=== PATIENT | female | born 1955 | race Caucasian/White ===

== ENCOUNTER → 2017-02-02 | Outpatient (CLI) | payer OTHER ==
[2013-12-16 09:56] VITALS: BP 110/60
[~2017-02-02] MED LIST: FLAX100017 PO; LACT1CAP25 PO; TURM1CAP PO
--- NOTE | 2017-02-02 14:30 | EKG ---
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
[2017-02-02 14:37] LABS: BASO # 0.1 x10^3/uL (0.0-0.2); BASO % 1 % (0-3); EOS % 5 % (0-3); HEMATOCRIT 37.3 % (36.0-47.0); HEMOGLOBIN 12.6 g/dL (12.0-15.5); LYMPH # 2.1 x10^3/uL (1.0-4.8); LYMPH % 29 % (24-48); MEAN CORPUSCULAR HEMOGLOBIN 29 pg (25-35); MEAN CORPUSCULAR HGB CONC 34 g/dL (31-37); MEAN CORPUSCULAR VOLUME 87 fL (79-100); MONO % 7 % (0-9); NEUT % 59 % (31-73); PLATELET COUNT 261 x10^3/uL (140-400); RED BLOOD COUNT 4.29 x10^6/uL (3.50-5.40); RED CELL DISTRIBUTION WIDTH 14.6 % (11.5-14.5); WHITE BLOOD COUNT 7.3 x10^3/uL (4.0-11.0)
--- NOTE | 2017-02-02 15:15 | RAD ---
Chest, 2 views, 02/02/2017: History: Preop evaluation for hysterectomy The heart size and pulmonary vascularity are normal. The lungs are clear. There is no evidence of pleural fluid. IMPRESSION: No acute cardiopulmonary abnormality is detected.
[2017-02-02 15:21] LABS: CALCIUM 9.3 mg/dL (8.5-10.1); CREATININE 0.8 mg/dL (0.6-1.0); GFR 72.7; POTASSIUM 3.8 mmol/L (3.5-5.1); TOTAL BILIRUBIN 1.2 mg/dL (0.2-1.0); TOTAL PROTEIN 8.1 g/dL (6.4-8.2)
[2017-02-02 15:23] LABS: BILIRUBIN,URINE NEGATIVE (NEG); GLUCOSE,URINE NEGATIVE (NEG); NITRITE,URINE NEGATIVE (NEG); PH,URINE 6.5; PROTEIN,URINE NEGATIVE (NEG-TRACE); UROBILINOGEN,URINE 0.2 mg/dL (0.2 mg/dL)
[2017-02-02 15:48] LABS: BACTERIA,URINE FEW /HPF (0-FEW); RBC,URINE OCC /HPF (0-2); SQUAMOUS EPITHELIAL CELL,UR MOD /LPF
== END | disposition home or self-care (01) ==
LOC: SURGPAT 13:48
PROVIDERS: ATTEND Obstetrics & Gynecology
DX: Z01.818 Encounter for other preprocedural examination (principal); R00.1 Bradycardia, unspecified
CPT/HCPCS: 36415; 71020; 80053; 81001; 85025; 93005

== ENCOUNTER 2017-02-11 06:00 | Observation (INO) | payer OTHER ==
[2017-02-11] VITALS (9 sets, daily range): BP systolic 89–127; BP diastolic 50–69
[~2017-02-11] VITALS: Ht 162.6 cm; Wt 87.5 kg
[2017-02-11] MEDS ORDERED: IV RINGERS,LACTATED 1000ML 1,000 ML IV SCH ×2 (06:14→09:45)
[2017-02-11] MEDS ORDERED: MIDAZOLAM HCL/PF 2 MG/2 ML VIAL. IV PRN (06:15)
[2017-02-11] MEDS ORDERED: LIDOCAINE 1% PF 2 ML VIAL. ID PRN ×2 (06:15→09:45)
[2017-02-11] MEDS ORDERED: fentaNYL PF VIAL 100 MCG/2 ML VIAL IV PRN ×3 (06:15→09:45)
[2017-02-11] MEDS ORDERED: SCOPOLAMINE 1.5MG PATCH. TD ONE ×2 (06:38→06:45)
[2017-02-11] MEDS ORDERED: BUPIVACAINE-EPI 0.25%-1:200000 MPF 30 ML VIAL. ONE (06:58)
[2017-02-11] MEDS ORDERED: ESTROGENS, CONJ VAGINAL CREAM 30GM TUBE. ONE (06:59)
[2017-02-11] MEDS ORDERED: MIDAZOLAM HCL/PF 2 MG/2 ML VIAL. ONE (07:12)
[2017-02-11] MEDS ORDERED: PROPOFOL 20 ML IV ONE (07:12)
[2017-02-11] MEDS ORDERED: DEXAMETHASONE SOD PHOS 20 MG/5 ML VIAL. ONE (07:12)
[2017-02-11] MEDS ORDERED: ONDANSETRON PF 4 MG/2 ML VIAL. ONE (07:12)
[2017-02-11] MEDS ORDERED: LIDOCAINE 2% PF Vial for OR 5 ML VIAL. ONE (07:12)
[2017-02-11] MEDS ORDERED: ROCURONIUM 100 MG/10 ML VIAL. ONE (07:13)
[2017-02-11] MEDS ORDERED: fentaNYL PF VIAL 100 MCG/2 ML VIAL ONE ×3 (07:13→09:40)
[2017-02-11] MEDS ORDERED: GLYCOPYRROLATE 1 MG/5 ML VIAL. ONE (07:38)
[2017-02-11] MEDS ORDERED: ePHEDrine PF IN SALINE 50 MG/5 ML DISP.SYRIN IV ONE (07:41)
[2017-02-11] MEDS ORDERED: FAMOTIDINE 20 MG/2 ML VIAL ONE (07:48)
[2017-02-11] MEDS ORDERED: SEVOFLURANE > 120 MINUTES. IH ONE (08:25)
[2017-02-11] MEDS ORDERED: NEOSTIGMINE 10 MG/10 ML VIAL. ONE (08:25)
[2017-02-11] MEDS ORDERED: KETOROLAC 60 MG/2 ML INJ FOR OR. ONE (09:32)
[2017-02-11] MEDS ORDERED: HYDROmorphone 2 MG/ML VIAL IV PRN ×2 (09:45→10:00)
[2017-02-11] MEDS ORDERED: ONDANSETRON PF 4 MG/2 ML VIAL. IV PRN ×2 (09:45→10:00)
[2017-02-11] MEDS ORDERED: MORPHINE SULFATE 4 MG/ML DISP.SYRIN. IV PRN ×2 (09:45→10:00)
[2017-02-11] MEDS ORDERED: PROCHLORPERAZINE 10 MG/2 ML VIAL. IV PRN (09:45)
--- NOTE | 2017-02-11 09:57 | PDOC ---
BRIEF OPERATIVE NOTE Date: Feb 11, 2017 Pre-Op Diagnosis pelvic organ prolapse with cystocele, rectocele and uterine prolapse Post-Op Diagnosis same Procedure Performed LAVH/BSO/anterior & posterior repairs Surgeon Dr. Alexa Leonard Magnetic Tape Typewriter Operator Dr. Mercy Ruth Anesthesiologist Dr. Johnson Anesthesia Type: General Blood Loss 150cc IV Fluid 1300cc Urine Output 400cc clear via [place] Specimens Obtained cervix, uterus, bilateral tubes and ovaries, anterior and posterior vaginal mucosa Findings 2 uterine prolapse, 3 cystocele, 2-3 rectocele, small atrophic uterus bilateral tubes and ovaries; mild omental adhesions at umb and RUQ from her prior surgeries present upon entry into abdominal cavity Complications none OPerative Note [id number] ALEXA LEONARD MD Feb 11, 2017 09:57
[2017-02-11] MEDS ORDERED: 0.9 % SODIUM CHLORIDE 10 ML DISP.SYRIN. IV PRN (10:00)
[2017-02-11] MEDS ORDERED: CALCIUM CARBONATE 500 MG TAB.CHEW PO PRN (10:00)
[2017-02-11] MEDS ORDERED: diphenhydrAMINE 50 MG/ML VIAL IV PRN (10:00)
[2017-02-11] MEDS ORDERED: ZOLPIDEM 5 MG TABLET. PO PRN (10:00)
[2017-02-11] MEDS ORDERED: diphenhydrAMINE HCL 25 MG CAPSULE PO PRN (10:00)
[2017-02-11] MEDS ORDERED: HYDROmorphone 2 MG TABLET PO PRN (10:00)
[2017-02-11] MEDS ORDERED: LACTULOSE 20 GM/30 ML SOLUTION. PO PRN (10:00)
[2017-02-11] MEDS ORDERED: MAGNESIUM HYDROXIDE 2,400 MG/30 ML ORAL.SUSP. PO PRN (10:00)
[2017-02-11] MEDS ORDERED: SIMETHICONE 80 MG TAB.CHEW PO PRN (10:00)
[2017-02-11] MEDS ORDERED: MAG HYDROX/ALUMINUM HYD/SIMETH 30 ML ORAL.SUSP PO PRN (10:00)
[2017-02-11] MEDS ORDERED: NALOXONE 0.4 MG/ML VIAL. IV PRN (10:00)
[2017-02-11] MEDS: fentaNYL PF VIAL 100 MCG/2 ML VIAL IV PRN ×2 (10:03→10:47)
--- NOTE | 2017-02-11 11:48 | OP ---
DATE OF SURGERY: 02/11/2017 DATE OF SERVICE: 02/11/2017 PREOPERATIVE DIAGNOSES: Symptomatic pelvic organ prolapsed with a second degree cervical uterine prolapse, third degree cystocele and second to third degree rectocele. POSTOPERATIVE DIAGNOSES: Symptomatic pelvic organ prolapsed with a second degree cervical uterine prolapse, third degree cystocele and second to third degree rectocele. SURGEON: Yovana Leonard M.D. OUTREACH SPECIALIST: Mercy Ruth MD ANESTHESIA: General. PROCEDURE PERFORMED: Laparoscopic-assisted vaginal hysterectomy, bilateral salpingo-oophorectomy, anterior and posterior colporrhaphy with perineoplasty. ANESTHESIA: General. ESTIMATED BLOOD LOSS: 150 mL. IV FLUIDS: 1300 mL of crystalloid. URINE OUTPUT: 400 mL, clear via Gardner. ANESTHESIOLOGIST: Dr. Johnson SPECIMENS: Cervix, uterus, bilateral tubes and ovaries with anterior and posterior vaginal mucosa as well. FINDINGS: Second degree uterine prolapse, third degree cystocele, second to third degree rectocele, small atrophic bilateral tubes and ovaries, mild omental adhesions at the umbilicus in the right upper quadrant from her previous abdominal surgeries present upon entry to the abdominal cavity. COMPLICATIONS: None. DESCRIPTION OF PROCEDURE: This patient was taken to the operating room where general anesthesia was placed. The patient was placed in dorsal lithotomy position in [facility]. The patient's abdomen and vagina were prepped and draped in the normal sterile fashion and a Gardner catheter was inserted under sterile technique. At this point, after time-out was performed, a bivalve speculum was placed in the patient's vagina. A single tooth tenaculum was used to grasp the anterior lip of the cervix. The 10 mL of 0.25% Marcaine with epinephrine was used to circumferentially inject around the cervix for both hemodissection and hemostatic purposes later. At this point, the Valtchev uterine manipulator was placed through the endocervical os, locked on the single tooth tenaculum and the bivalve speculum was then removed. Top gloves were discarded and changed. Attention was then turned to the abdomen where a small supraumbilical skin incision was made with the scalpel over the existing scar. A curved Kimberly was used to dissect through the subcuticular layer. The Visiport was used to directly enter the abdominal cavity and opening patient pressure was 2-3 mmHg. The couple of mL of air was placed in the balloon port of the trocar and patient was placed in Trendelenburg position. The right and left lower quadrant ports were placed easily after transilluminating the anterior abdominal wall, picking an area free of any vessels making a small incision and putting the 5 mm atraumatic trocars and again a few mL of air were used to inflate the balloon from both of these. The scope was moved to one of the lateral ports to look at the umbilical port, as we could see omental adhesions, it was not in omental adhesions, it was right next to it and then there were some in the right upper quadrant that were existing, unsure from her either previous lap guillermo, lap band or both, but these were not taken down and we could see around them and the pelvis was completely clear of any adhesions, it was all umbilical and right upper quadrant. At this point, the left round ligament was cauterized and cut with the LigaSure Advance creating a window in the mesosalpinx, making the bladder flap sharply with the monopolar tip elevating the left tube and ovary, finding the ureter coursing very low in the pelvis, staying high on the ovary crossing the infundibulopelvic ligament, cauterizing and cutting it in a stepwise fashion going down and obtaining the uterine vessels on this side as well. This was done exactly the same on the right side first starting with the round ligament, cauterizing and cutting it, going down and further meeting that bladder flap anteriorly elevating the right tube and ovary, again finding the ureter coursing low, staying high on the ovary crossing the IP ligament, cauterizing and cutting it with the LigaSure Advanced and obtaining the uterine vessels on this side as well. Then, crossing contralaterally hugging the cervix and staying vertical going through the cardinal and broad ligaments to the uterosacral cauterizing and cutting each step 2 or three bites with the LigaSure Advance making sure hemostasis was achieved. Once this was done, all instruments were removed from the abdomen and attention was turned vaginally. The Valtchev and single tooth were removed. Thyroid Valery clamps were placed on the anterior and posterior lips of the cervix respectively and a weighted speculum was placed in the patient's vagina. A scalpel was used to make a circumferential incision. This was made very low like 1 cm above the cervical os on the top, as there was good cystocele and the anterior cul-de-sac was sharply entered. The retractor curved Roberto was placed in the anterior cul-de-sac. The left side was completely free; the right side, one bite remained. After getting in posteriorly sharply entering that with the Jeffries scissors, a #0 Vicryl stitch was used to secure the posterior peritoneum to the vaginal cuff. The short weighted speculum was removed and replaced with the long weighted Honorio speculum. The entire left side was completely free and the tube and ovary were actually hanging out the uterus and is inverted on this side. It was a small atrophic uterus. There was one remaining pedicle on the right side. The right angle clamp was used to delineate this and the vaginal LigaSure Max was used to cauterize the remaining pedicle. Cervix, uterus, bilateral tubes and ovaries were delivered and total and passed off for permanent pathology. There was some slight bleeding from the left side. A Burlisher was placed over this and vaginal LigaSure Max was placed behind and securing bleeding on this side, cauterizing it. Once this was done, a sponge stick was used to examine the remaining pedicles, they were dry. The long weighted Honorio speculum was removed and replaced with the short weighted. There was some slight bleeding at the cuff, interrupted suture was placed here as well with #0 Vicryl. Once this was done, the anterior bladder peritoneum was grasped with a long Allis. Again, the pedicles remained dry, 2-0 Vicryl was taken through this though left uterosacral, posterior peritoneum and right uterosacral thus closing the peritoneum in a pursestring like fashion. Once this was done, Wei's were placed 2 and 10 o'clock on the anterior cuff and 40 mL of a dilute solution of 1 part local to a 4 parts injectable saline was used. I believe it was 50 and 200 of the injectable saline was used, 40 mL was used to the anterior defect. Metzenbaum scissors were used to open up this defect and Allis clamps were placed along the way. Using the Metzenbaum scissors sharply, and then the Ray-Rosanne 4 x 4 was used to gently push up the anterior bladder peritoneum. After the Metzenbaum scissors were used to take the defect off the edges and then the Ray-tech was used to gently push it up. A nice avascular ____ very good on this left and right side. The anterior defect was reduced, I believe 4 or 5 interrupted 2-0 Vicryl sutures were used. They were placed and then tagged with curved Kellys reducing and then once they were not tied yet, they were just tagged and then taking him back in order pushing up the defect with the blunt end of pickups and then tying them from the superior to inferior interrupted sutures reducing the defect well, Metzenbaum scissors were used to gently take off any excess vaginal mucosa on the anterior wall and then a 2-0 Vicryl was used to close the entire defect from anterior all the way down to the posterior cuff in a running locked fashion with a full length 2-0 Vicryl. Once this was done, the Kochers were then placed at 4 and 7 o'clock at the introitus for the posterior defect, 60 mL of that dilute solution was used to inject the perineal body and the posterior defect. A scalpel was used to take a wedge shaped specimen out of the vaginal opening, it was taken off and then Metzenbaum scissors were again used to open up the posterior defect placing Allis along the way and taking it all the way up to that posterior cuff tag or posterior cuff stitch. Again sharply and bluntly using the Metzenbaum scissors to release it on the edges and then the Ray-Rosanne 4 x 4 used to gently push it off in the posterior vaginal mucosa reducing the rectocele. 5 or 6 interrupted 2-0 Vicryl sutures were placed here with excellent results. First placing them and tagging them and then going back and reducing it, pushing it down and tying it and then trimming off the excess vaginal mucosa again and then a running locked stitch full length 2-0 Vicryl was used to close the posterior defect and then at the introitus, that reapproximated the hymenal ring and then going under it with closing the perineal body with sutures and then ____ it up the perineal body like an episiotomy and then taking it back and entering in the vagina. A small amount of packing with Premarin cream was placed in the patient's vagina and this concluded the vaginal part. All gloves were discarded and changed. Attention was turned back above for a second look from above. Everything was hemostatic. Copious irrigation revealed hemostasis, right and left pericolic gutters were clear. The cuff was dry, so Tisseel was placed over the pedicles and the right and left lower quadrant. The balloons were deflated, they were released. Sooner when the balloon was deflated and all the gas was released and then it was removed as well. All sponge, lap and needle counts were correct x 2 by OR personnel and the patient was awakened from the anesthesia and taken to recovery room in stable condition. YOVANA LEONARD MD DR: STEPHANY/radha JOB#: [id number] / [id number]
[2017-02-11] MEDS: KETOROLAC 30 MG/ML INJ. IV PRN ×2 (16:32→21:55)
[2017-02-11] MEDS ORDERED: DOCUSATE SODIUM 100 MG CAPSULE. PO ONE (21:30)
[2017-02-12 01:44] VITALS: BP 88/53
[2017-02-12 05:04] LABS: CALCIUM 8.3 mg/dL (8.5-10.1); CREATININE 0.8 mg/dL (0.6-1.0); GFR 72.7; POTASSIUM 5.3 mmol/L (3.5-5.1)
[2017-02-12] MEDS: KETOROLAC 30 MG/ML INJ. IV PRN (05:12)
[2017-02-12 05:41] VITALS: BP 83/42
[2017-02-12 05:42] VITALS: BP 100/55
[2017-02-12 05:43] VITALS: BP 92/57
--- NOTE | 2017-02-12 08:55 | PDOC ---
SURGICAL PROGRESS NOTE Subjective Doing well without complaints. No pain at all. Ambulating well around the floor scant vaginal spotting only. No n/v, tolerating regular diet without problems Vital Signs Vital Signs Date Time Temp Pulse Resp B/P (MAP) Pulse Ox O2 Delivery O2 Flow Rate FiO2 02/12/17 05:43 55 92/57 (69) 02/12/17 05:42 97.9 18 95 Room Air 97.9 02/11/17 17:43 2.0 PATIENT HAS A SOLIS: No General: Alert, Oriented X3, Cooperative, No acute distress HEENT: Atraumatic Heart: Regular rate Abdomen: Normal bowel sounds, Soft, No tenderness, Other (all port sites c/d/i) Extremities: No clubbing, No cyanosis, No edema Neuro: Normal gait, Normal speech Psych/Mental Status: Mental status NL, Mood NL Labs Laboratory Tests Test 02/12/17 04:34 Hematocrit 29.7 % (36.0-47.0) Sodium Level 139 mmol/L (136-145) Potassium Level 5.3 mmol/L (3.5-5.1) Chloride Level 106 mmol/L (98-107) Carbon Dioxide Level 25 mmol/L (21-32) Anion Gap 8 (6-14) Blood Urea Nitrogen 12 mg/dL (7-20) Creatinine 0.8 mg/dL (0.6-1.0) Estimated GFR (Cockcroft-Gault) 72.7 Glucose Level 112 mg/dL (70-99) Calcium Level 8.3 mg/dL (8.5-10.1) Laboratory Tests Test 02/12/17 04:34 Hematocrit 29.7 % (36.0-47.0) Sodium Level 139 mmol/L (136-145) Potassium Level 5.3 mmol/L (3.5-5.1) Chloride Level 106 mmol/L (98-107) Carbon Dioxide Level 25 mmol/L (21-32) Anion Gap 8 (6-14) Blood Urea Nitrogen 12 mg/dL (7-20) Creatinine 0.8 mg/dL (0.6-1.0) Estimated GFR (Cockcroft-Gault) 72.7 Glucose Level 112 mg/dL (70-99) Calcium Level 8.3 mg/dL (8.5-10.1) I have reviewed the following labs, vitals, nursing Cardiovascular: No pertinent hx Pulmonary: No pertinent hx GI: No pertinent hx Heme/Onc: No pertinent hx Psych: No pertinent hx Rheumatologic: No pertinent hx Infectious disease: No pertinent hx Renal/: No pertinent hx Problem List symptomatic pelvic organ prolapse Assessment/Plan POD #1 s/p LAVH/BSO/anterior and posterior repairs Routine po care d/c to home later today Demerol po pain meds written at home ok for OTC ibuprofen as well NPV x 6 weeks Light/limited activity x 2 weeks keep scheduled follow up appt with me in 1 week in the office call or return sooner for any other questions or concerns not limited to but including pain unrelieved with pain meds, increased or unexplained vaginal bleeding or T>100.4 Problems: YOVANA KELLY MD Feb 12, 2017 08:55
--- NOTE | 2017-02-12 08:58 | PDOC3 ---
Discharge Summary Visit Information Date of Admission: Feb 11, 2017 Date of Discharge: Feb 12, 2017 Admitting Diagnosis Comment: symptomatic pelvic organ prolapse Final Diagnosis same Brief Hospital Course Allergies Allergies Coded Allergies Type Severity Reaction Last Updated Verified codeine Adverse Reaction Intermediate cough 02/11/17 Yes Vital Signs Vital Signs Date Time Temp Pulse Resp B/P (MAP) Pulse Ox O2 Delivery O2 Flow Rate FiO2 02/12/17 05:43 55 92/57 (69) 02/12/17 05:42 97.9 18 95 Room Air 97.9 02/11/17 17:43 2.0 Lab Results Laboratory Tests Test 02/12/17 04:34 Hematocrit 29.7 % (36.0-47.0) Sodium Level 139 mmol/L (136-145) Potassium Level 5.3 mmol/L (3.5-5.1) Chloride Level 106 mmol/L (98-107) Carbon Dioxide Level 25 mmol/L (21-32) Anion Gap 8 (6-14) Blood Urea Nitrogen 12 mg/dL (7-20) Creatinine 0.8 mg/dL (0.6-1.0) Estimated GFR (Cockcroft-Gault) 72.7 Glucose Level 112 mg/dL (70-99) Calcium Level 8.3 mg/dL (8.5-10.1) Laboratory Tests Test 02/12/17 04:34 Hematocrit 29.7 % (36.0-47.0) Sodium Level 139 mmol/L (136-145) Potassium Level 5.3 mmol/L (3.5-5.1) Chloride Level 106 mmol/L (98-107) Carbon Dioxide Level 25 mmol/L (21-32) Anion Gap 8 (6-14) Blood Urea Nitrogen 12 mg/dL (7-20) Creatinine 0.8 mg/dL (0.6-1.0) Estimated GFR (Cockcroft-Gault) 72.7 Glucose Level 112 mg/dL (70-99) Calcium Level 8.3 mg/dL (8.5-10.1) Brief Hospital Course Ms. Nolan is a 61 old female who presented with uterine prolapse, cystocele and rectocele. She underwent and LAVH/BSO with anterior and posterior repairs without difficulty yesterday. She has had an unremarkable postoperative course and is tolerating regular diet, amulating well and voided without catheter already this morning and wants to go home. Discharge Information Condition at Discharge: Improved Follow Up: Weeks Disposition/Orders: D/C to Home Miscellaneous Medications Turmeric/Turmeric Ext/Pepr Ext (Turmeric Complex 500 mg Cap), 1 EACH PO, ( Reported) Patient Instructions Patient Instructions POD #1 s/p LAVH/BSO/anterior and posterior repairs Routine po care d/c to home later today Demerol po pain meds written at home ok for OTC ibuprofen as well NPV x 6 weeks Light/limited activity x 2 weeks keep scheduled follow up appt with me in 1 week in the office call or return sooner for any other questions or concerns not limited to but including pain unrelieved with pain meds, increased or unexplained vaginal bleeding or T>100.4 YOVANA KELLY MD Feb 12, 2017 08:58
[2017-02-12] MEDS ORDERED: DOCUSATE SODIUM 100 MG CAPSULE. PO SCH (09:00)
[2017-02-12] MEDS ORDERED: FLU VACC QS2017-18 (36MOS+)/PF 0.5 ML SYRINGE. VAX IM ONE (10:30)
[2017-02-12 10:59] VITALS: BP 97/49
--- NOTE | 2017-02-12 14:48 | PATHOLOGY ---
PATHOLOGY REPORT * * * * * * * * FINAL DIAGNOSIS: Uterus and attached bilateral fallopian tubes and ovaries, laparoscopic assisted vaginal hysterectomy with bilateral salpingo-oophorectomy: - Atrophy and chronic inflammation of exocervical epithelium. - Atrophic endometrium. - Status-post bilateral tubal ligation. - Serous cystadenofibroma of right ovary. - Few small serous cysts of left ovary. COMMENT: There is no evidence of malignancy. (JPM:mgr; 02/12/2017) REPORT ELECTRONICALLY SIGNED BY: Pepe Bragg M.D. DATE/TIME: 02/12/2017 14:47 * * * * * * * * GROSS PATHOLOGY: The specimen is received in formalin labeled "Yovani Vega, uterus with cervix and bilateral tubes and ovaries". Received is a 7.3 x 4.3 x 2.4 cm, 24 g uterus with attached cervix. The uterine serosa is pale yellow truong, smooth and glistening. The 1.5 cm slit like cervical os is surrounded by reddish brown, focally granular appearing ectocervical mucosa. The uterus is oriented using the peritoneal reflection and the anterior paracervical margin is inked black. The uterus is opened laterally to reveal a yellow truong, corrugated endocervical canal measuring 2.7 cm in length. The endometrial cavity is roughly triangular in shape measuring 3.0 cm in length by 2.2 cm in width. The endometrium is pale yellow truong in appearance and measures 0.1 cm in thickness. Serial sectioning reveals a yellow truong myometrium measuring 0.8 cm in thickness. The 4.8 g, right adnexa consists of a previously ligated, fimbriated fallopian tube measuring 2.7 cm in length by up to 0.4 cm in diameter attached to a 3.0 x 2.2 x 1.0 cm ovary. Sectioning through the fallopian tube reveals a pinpoint, unremarkable lumen and the fallopian tube otherwise appears grossly unremarkable. Sectioning through the ovary reveals a yellow truong, unremarkable cut surface with several cortical cysts. There is a 1.0 cm cyst filled with thick, pale yellow mucoid fluid. The 3.0 g, left adnexa consists of a previously ligated, fimbriated fallopian tube measuring 3.5 cm in length by up to 0.4 cm in diameter attached to a 2.7 x 1.0 x 0.8 cm ovary. Sectioning through the fallopian tube reveals a pinpoint, unremarkable lumen and the fallopian tube otherwise appears grossly unremarkable. Sectioning through the ovary reveals pale yellow truong ovarian parenchyma. Cutting And Creasing Press Operator sections are submitted as follows: A1- anterior and posterior cervix A2- anterior endomyometrium A3- posterior endomyometrium A4- quality control representative sections of right adnexa A5- quality control representative sections of left adnexa (JPM; 02/11/17) INITIAL CPT CODE(S): A; 86306 Professional services performed [place] [facility] [place] [address] Technical services performed by [facility] at [address] [place] [address], [address], [place] [address]. SPECIMEN(S) RECEIVED: A.Uterus with cervix, bilateral tubes and ovaries CLINICAL HISTORY: Cervical prolapse, cystocele, rectocele PATIENT: YOVANI VEGA /AGE: 10 1955 (Age: 61) PATIENT #: [id number] ALT CASE #: SPECIMEN COLLECTION DATE: 02/11/2017 SPECIMEN RECEIVED DATE: 02/11/2017 [facility] - [address] [place] [address] - PHONE: [phone] * * * END OF REPORT * * *
== END 2017-02-12 12:03 | disposition home or self-care (01) ==
LOC: SURG 06:00 → 3 NORTH 10:05
PROVIDERS: ADMIT Obstetrics & Gynecology; ATTEND Obstetrics & Gynecology
DX: N81.2 Incomplete uterovaginal prolapse (principal); K66.0 Peritoneal adhesions (postprocedural) (postinfection); Z23 Encounter for immunization
CPT/HCPCS: 36415; 57260; 58552; 80048; 85014; 86850; 86900; 86901; 88305; 90471; 90686; 96374; 96375; 96376; C1769; G0378; G0379; J0690; J0780; J1100; J1170; J1885; J2250; J2405; J2704; J2710; J3010; J3490; J7030; J7120; S0028; J2001